=== PATIENT | female | born 1990 | race Caucasian/White ===

== ENCOUNTER 2018-08-12 10:48 | Inpatient (IN) | payer BC ==
[~2018-08-12] VITALS: Ht 165.1 cm; Wt 101.4 kg
[2018-08-16] VITALS (35 sets, daily range): BP systolic 88–132; BP diastolic 40–83; PULSE 68–129; TEMP 97.3–98.8
--- NOTE | 2018-08-16 07:10 | NUR ---
Patient arrives ambulatory with spouse for scheduled induction of labor. Patient reports occasional contractions over the past few days, denies ROM or vaginal bleeding, and reports normal movement. Patient changes into gown, EFM explained and placed. VSS. Reviewed plan of care for induction, patient denies questions and agrees to plan. Assessment completed. 0725- IV started in LFA, labs obtained. LR infusing per protocol. Reactive FHR strip obtained. Consents explained and signed. Denies questions. 0750- SVE unchanged from office. Reviewing Pitocin administration with patient, denies questions. Pitocin started at 2 mU per protocol and order. Will monitor per protocol. Call light in reach.
[2018-08-16] MEDS ORDERED: PRENATAL (07:34)
[2018-08-16 08:12] LABS: BASO % 0.2 % (0.0-2.0); EOS # 0.1 (0.0-0.7); EOS % 0.9 % (0-4.0); GRAN # 6.9 (1.4-6.5); GRAN % 70.2 % (42.2-75.2); LYMPH # 2.2 (1.2-3.4); MEAN CELL VOLUME 86 fl (80.0-100.0); MEAN CORPUSCULAR HEMOGLOBIN 29 pg (27.0-31.0); MEAN CORPUSCULAR HGB CONC 34 g/dl (33.0-37.0); MEAN PLATELET VOLUME 10.9 fl (7.4-10.4); MONO # 0.6 (0.1-0.6); MONO % 6.2 % (1.7-9.3); PLATELET COUNT 239 K/mm3 (130-400); RED BLOOD COUNT 4.15 M/mm3 (4.10-5.30); REDCELL DISTRIBUTION WIDTH-CV 12.8 % (11.5-14.5)
[2018-08-16 08:14] LABS: HEMATOCRIT 35.8 % (37.0-47.0)
--- NOTE | 2018-08-16 10:30 | NUR ---
Patient requesting epidural. Basim Kim CRNA notified, LR bolus infusing. Patient assisted to sit on edge of bed. 1035- Basim Kim CERTIFIED REGISTERED DENTAL ASSISTANT at bedside. Difficulty tracing FHR due to matneral position. 1105- Test dose via edpiural by Basim Kim CRNA. Patient tolerates well, no adverse reactions noted. See anesthesia record. 1108- Patient repositioned WL. Updated on plan of care.
--- NOTE | 2018-08-16 13:50 | NUR ---
1350- Patient repors increased pressure. SVE 2. Dr. Castillo notified and requested for impending delivery. RN remains at bedside, patient reports continued pressure. Bhandari catheter removed prior to pushing. Pericare given. 1400- Dr. Castillo at bedside. SVE per provider 2. Patient assisted to footplates and prepped for delivery. Nursery RN to bedside. 1403- Patient begins to push with contractions, moves vertex well. 1404- of viable female attended by Dr. Castillo. to mothers abdomen, care of infant to Irina Myers RN. Apgars 9. 1410- Spont. delivery of placenta. Pitocin bolus started at 333 ml/hr/protocol. Fundal massage firm, vaginal bleeding WNL. First degree perineal laceration repaired, patient tolerates well. Pericare given and ice pack to perineum. Patient updated on plan of care.
[2018-08-17 08:55] VITALS: BP 134/80; PULSE 86; TEMP 98.1
[2018-08-17] MEDS ORDERED: IBU600 MG PO (09:34)
--- NOTE | 2018-08-17 12:17 | NUR ---
Initial visit; Mom thanked Software Specialist for offering congratulations and God's blessings to their family for the of their dsughter. Software Specialist thanked family for choosing [facility].
== END 2018-08-17 15:40 | disposition home or self-care (01) | DRG 807 ==
LOC: OB 08-16 07:00 → LDR 08-16 07:00 → OB 08-16 16:38
PROVIDERS: ADMIT Obstetrics & Gynecology
PROC: 10E0XZZ Delivery of Products of Conception, External Approach (ICD-10-PCS; principal; 2018-08-16)
PROC: 3E033VJ Introduction of Other Hormone into Peripheral Vein, Percutaneous Approach (ICD-10-PCS; 2018-08-16)
PROC: 10907ZC Drainage of Amniotic Fluid, Therapeutic from Products of Conception, Via Natural or Artificial Opening (ICD-10-PCS; 2018-08-16)
PROC: 0HQ9XZZ Repair Perineum Skin, External Approach (ICD-10-PCS; 2018-08-16)
DX: O70.0 First degree perineal laceration during delivery (principal); Z37.0 Single live birth; Z3A.39 39 weeks gestation of pregnancy; O99.214 Obesity complicating childbirth
CPT/HCPCS: J2590; J7120

== ENCOUNTER → 2020-02-27 | Outpatient (CLI) | payer BC ==
[~2020-02-27] MED LIST: IBU600 MG PO; PRENATAL
== END ==
LOC: COL.RAD 11:14
DX: R31.29 Other microscopic hematuria (principal)

== ENCOUNTER 2020-08-16 19:21 | Emergency (ER) | payer BC ==
[~2020-08-16] VITALS: Ht 167.6 cm; Wt 68.2 kg
[2020-08-16 19:25] VITALS: TEMP 97.3
[2020-08-16 19:34] LABS: COLLECTION METHOD CLEAN CATCH
[2020-08-16 19:47] LABS: MUCOUS Present /lpf; PH 5 (5-8); URINE APPEARANCE Turbid; URINE BACTERIA None Seen /hpf; URINE BILIRUBIN Negative (NEGATIVE); URINE BLOOD 3+ (NEGATIVE); URINE COLOR Amber; URINE GLUCOSE Negative (NEGATIVE); URINE KETONE Trace (NEGATIVE); URINE LEUKOCYTE ESTERASE 2+ (NEGATIVE); URINE NITRATE Negative (NEGATIVE); URINE PROTEIN(semi-quant) 3+ (NEGATIVE); URINE RBC >50 /hpf; URINE UROBILINOGEN Negative (NEGATIVE)
[2020-08-16] MEDS ORDERED: CEFTIN500 MG PO (20:01)
[2020-08-16 20:28] VITALS: BP 132/80; PULSE 84
== END 2020-08-16 20:28 | disposition home or self-care (01) ==
LOC: COL.ER 19:21
PROVIDERS: Physician Assistant
DX: N30.91 Cystitis, unspecified with hematuria (principal); Z32.02 Encounter for pregnancy test, result negative
CPT/HCPCS: J0696